=== PATIENT | male | born 1960 | race Caucasian/White ===

== ENCOUNTER 2017-02-02 13:42 | Emergency (ER) | payer MEDICARE, MEDICAID ==
[~2017-02-02] VITALS: Ht 170.2 cm; Wt 86.4 kg
[~2017-02-02 13:42] MED LIST: 00186-0370-20 IH; ATIVAN 0.50.5 MG/TAB PO; CELEXA 20MG20 MG/TAB PO; CLEOCIN HC150 MG/CAP PO; DOXYCYCLINE 10100 MG PO; FLEXERIL 1010 MG/TAB PO; HARVONI; LEVOXYL0.1 MG; LORTAB 5/500 501 TAB PO; METHADONE H10 MG/TAB PO; METHADONE10 MG/5 M1 PO; NAPROSYN500 MG PO; NICODERM C14 MG/PATC TD; NO HOME MEDICATIONS; NORCO 325 MG-51 TAB PO; PAXIL 30MG30 MG PEG; PEN-VEE K500 MG PO; PERCOCET 325 MG1 TA2 PO; PREDNISONE20 MG PO; PROAIR HFA0.09 MG/AC IH; PROVENTIL0.09 MG/A1 IH; REMERON 15M15 MG/TAB PO; SEROQUEL 200MG200 MG PO; SEROQUEL 2525 MG/TAB PO; SEROQUEL XR150 MG PO; SYNTHROID0.05 MG/TA PO; VICODIN PO; ZANTAC 150MG T150 MG PO; ZOFRAN 4MG T4 MG/TAB PO
[2017-02-02 13:46] VITALS: BP 144/83; TEMP 98.6
[2017-02-02] MEDS ORDERED: CLINDAMYCIN150 MG PO (15:31)
[2017-02-02] MEDS ORDERED: PERIDEX (CHLOR480 ML MM (15:31)
[2017-02-02 15:35] VITALS: PULSE 72
== END 2017-02-02 15:36 | disposition home or self-care (01) ==
LOC: COL.ER 13:42
DX: K02.9 Dental caries, unspecified (principal); R68.84 Jaw pain; J44.9 Chronic obstructive pulmonary disease, unspecified; F17.210 Nicotine dependence, cigarettes, uncomplicated

== ENCOUNTER 2018-05-18 15:08 | Observation (INO) | payer MEDICARE, MEDICAID ==
[~2018-05-18] VITALS: Ht 170.2 cm; Wt 85.4 kg
[~2018-05-18 15:08] MED LIST changes: +CLINDAMYCIN150 MG PO; +PERIDEX (CHLOR480 ML MM
[2018-05-18 16:12] LABS: BASO # 0.1 (0.0-0.2); BASO % 0.6 % (0.0-2.0); GRAN # 6.5 (1.4-6.5); GRAN % 77.8 % (42.2-75.2); HEMATOCRIT 46.6 % (42.0-52.0); HEMOGLOBIN 15.8 g/dl (13.5-18.0); LYMPH # 1.2 (1.2-3.4); LYMPH % 14.1 % (20.0-51.0); MEAN CELL VOLUME 88 fl (80.0-100.0); MEAN CORPUSCULAR HEMOGLOBIN 30 pg (27.0-31.0); MEAN CORPUSCULAR HGB CONC 34 g/dl (33.0-37.0); MEAN PLATELET VOLUME 11.6 fl (7.4-10.4); MONO # 0.6 (0.1-0.6); MONO % 7.3 % (1.7-9.3); PLATELET COUNT 151 K/mm3 (130-400); RED BLOOD COUNT 5.27 M/mm3 (4.20-5.60); REDCELL DISTRIBUTION WIDTH-CV 12.3 % (11.5-14.5)
[2018-05-18 16:24] LABS: BILIRUBIN,TOTAL 0.6 mg/dL (0.0-1.0); CALCIUM 8.6 mg/dL (8.4-10.2); CREATININE, serum 0.82 mg/dL (0.66-1.25); POTASSIUM 4.2 mmol/L (3.4-5.0); TOTAL PROTEIN 7.3 gm/dL (6.4-8.2)
[2018-05-18] MEDS ORDERED: PROAIR HFA0.09 MG/AC IH (16:51)
[2018-05-18] MEDS ORDERED: DOXYCYCLINE 10100 MG PO (16:51)
[2018-05-18] MEDS ORDERED: PREDNISONE20 MG PO (16:51)
[2018-05-18 22:01] VITALS: BP 127/70; PULSE 79; TEMP 98.7
[2018-05-19] VITALS (7 sets, daily range): BP systolic 113–141; BP diastolic 63–84; PULSE 70–90; TEMP 98–99.1
--- NOTE | 2018-05-19 00:24 | NUR ---
THE PT WAS ORIENTED TO [facility], ASSISTED OUT OF HIS STREET CLOTHES AND INTO A HOSPITAL GOWN WITH NON SLIP SOCKS ON. HE VERBALIZED OF THE PAST 4 DAYS OF GRADUALLY GETTING MORE AND MORE SHORT OF BREATH, ASKED HIS FRIEND TO BRING HIM TO THE ER. ASSESSED AND ADMITTED. VERBALIZED THAT HE GOT TO THE ER ABOUT [id number]. GOT 2 BREATHING TREATMENTS AND THAT THEY APPEAR TO HAVE HELPED HIM, HE BEDRESTS WITH TV ON. ATE A SANDWICH BOX AND PEPSI
--- NOTE | 2018-05-19 02:40 | NUR ---
BEDRESTING, AWAKE, BUT RESTING, DENIED PAIN OR PROBLEM.
[2018-05-19 06:35] LABS: CALCIUM 8.6 mg/dL (8.4-10.2); CREATININE, serum 0.77 mg/dL (0.66-1.25); POTASSIUM 4.4 mmol/L (3.4-5.0)
[2018-05-19 06:55] LABS: BASO % 0.2 % (0.0-2.0); GRAN # 7.7 (1.4-6.5); GRAN % 88.8 % (42.2-75.2); HEMATOCRIT 43.8 % (42.0-52.0); HEMOGLOBIN 14.6 g/dl (13.5-18.0); LYMPH # 0.8 (1.2-3.4); LYMPH % 8.7 % (20.0-51.0); MEAN CELL VOLUME 89 fl (80.0-100.0); MEAN CORPUSCULAR HEMOGLOBIN 30 pg (27.0-31.0); MEAN CORPUSCULAR HGB CONC 33 g/dl (33.0-37.0); MONO # 0.2 (0.1-0.6); MONO % 1.8 % (1.7-9.3); PLATELET COUNT 154 K/mm3 (130-400); REDCELL DISTRIBUTION WIDTH-CV 12.3 % (11.5-14.5)
--- NOTE | 2018-05-19 10:06 | NUR ---
Initial visit; Patient experiencing anxiety and was receptive to Application Consultant listening and offering prayer and encouragement.
--- NOTE | 2018-05-19 11:00 | NUR ---
SW attended clinical rounding and met with patient to discuss discharge planning. Patient lives with a roommate and two dogs in [place]. His PCP is Dr Villafuerte and he obtains his medications at [facility]. 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 Patient works for [employer] and runs the [employer] occasionally. Patient has been smoking for 25 years but reports he is quitting now. He has had issues paying for his rescue inhalers in the past but is able to obtain his other medications. RAFY will continue to follow for any dc needs.
--- NOTE | 2018-05-19 18:00 | NUR ---
Patient is independent in his room and on a general diet. He ordered his own meals today and is tolerating diet well. No reports of nausea this shift. VSS this shift and is on 3 L NC this evening following treatments with RT. Patient given Ativan this morning due to anxiety. Patient reports that he quit smoking, but did not want to use the nicoderm patch today. Patient had a shower today and was independent with all tasks. Multiple times this nurse checked in on patient and visted with him with noting that he just wanted to visit and following visits he would rest in bed. Patient was teary eyed at one point when discussing depression, but after visiting for a short time, did report feeling better. Will continue to monitor.
--- NOTE | 2018-05-19 21:10 | NUR ---
Patient up ambulating in room. Complaints of anxiousness/restlessness and ativan along with HS meds reviewed and given. Snack of ensure given. Denies further needs at this time.
--- NOTE | 2018-05-19 22:30 | NUR ---
Patient rests in bed. States ativan helped some. Reports may hold off on breatheing treatments at times.
--- NOTE | 2018-05-20 02:23 | NUR ---
Patient rests on right side. Respirations with ease.
[2018-05-20 05:15] VITALS: BP 126/73; PULSE 73; TEMP 98
[2018-05-20 05:17] VITALS: BP 124/65; PULSE 80; TEMP 98
[2018-05-20 07:06] VITALS: BP 124/66; PULSE 80; TEMP 98
--- NOTE | 2018-05-20 11:00 | NUR ---
PT ON ROOM AIR X 15 MINUTES OR LESS. PT STANDING AND TALKING ON PHONE WHEN RT WALKED INTO ROOM. SPO2 85%. PT WANTED TO WALK ANYWAY WITH O2 SO HE WALKED WITH RT AT 3 LPM APPROXIMATELY 300 FEET. SPO2 87-88 ON 3 LPM. TURNED UP TO 4 LPM. BACK TO ROOM TO REST BRIEFLY SPO2 89-90% BACK ON 3 LPM.
--- NOTE | 2018-05-20 11:29 | NUR ---
Patient currently resting in bed at this time following having his exercise oximetry completed. Patient had an anxiety attack this morning and since then has calmed down and seems to be more relaxed. Will continue to monitor.
[2018-05-20 12:00] VITALS: BP 113/74; PULSE 89; TEMP 98.2
--- NOTE | 2018-05-20 14:47 | NUR ---
RAFY and RAFY student met with patient to discuss o2 needs. Patient reports he is currently living in [place], [place]. SW provided choice form and he chose via [facility]. RAFY faxed referral for o2 and nebulizer to [facility]. Patient is dc today home with a friend and o2 provided by [facility].
[2018-05-20] MEDS ORDERED: AIRDUO RESPICL1 EAC1 IH (15:26)
[2018-05-20] MEDS ORDERED: IPRATROPIUM BROM3 M1 IH (15:26)
[2018-05-20] MEDS ORDERED: NICODERM C14 MG/PATC TD (15:28)
[2018-05-20] MEDS ORDERED: PREDNISONE20 MG PO (15:28)
[2018-05-20 15:52] VITALS: BP 143/70; PULSE 94; TEMP 98.3
--- NOTE | 2018-05-20 17:45 | NUR ---
Patient's Health Summary, Discharge Summary, and Home meds printed and reviewed with patient. Stressed importance of follow up appointments. Reviewed medications, called pharmacy to get prices of medications for patient. Called [facility] to have them deliver an oxygen tank flow meter that worked. The one they delivered was broken. Patient will be leaving and stoping by via [facility] to have them educate him on use of oxygen at home. This nurse set up follow up appointments with new PCP Dr. Gtz for 05/27/18 at 1:30 PM and follow up pulmonology appointment SOURAV Villa on 05/21/18 at 2 PM. Belongings gathered by RJ/Myra including glasses, black leather wallet, $20 granado, cell phone and network technical analyst. Patient transported via wheelchair by RJ/Myra and seatbelted for ride home. Patient denied questions.
--- NOTE | 2018-05-20 18:15 | NUR ---
This nurse was working with another patient when she was notified by HALI Boyle that this patient was on the floor in his room. This nurse immediatly went to patient's room and found him sitting on the floor with his oxygen on having a difficult time breathing. Patient stated, "I did not fall, I sat on the floor because I couldn't breath." After visiting with patient found out that RT had been in giving him a breathing treatment. Per patient, "When RT left they had left him off oxygen." He said that he thought he would be okay being off the oxygen since he didn't need it all the time when he was at home. He said that it wasn't RT's fault. Patient stated that he started to cough and without oxygen he had a difficult time breathing. This caused him to yell out to staff, "Help need oxygen". He then sat on the floor and when Tamar arrived to patient she immediatly put his oxygen back on him. This nurse then assisted patient up to his bed via assitance by HALI Boyle. VS BP 135/78, P 128, R 28 on 4 L NC. Patient was given Ativan to help with anxiety and was then given his scheduled methadone. When taking the methadone he took them very fast and one of them got lodged in his throat. This caused him to cough more, increase his anxiety, then led to his heart rate elevating to 130. This nurse called and spoke with charge nurse. Charge nurse, Van spoke with patient and then called SOURAV Escobedo to stop by and see patient to have him evaluated. Patient was evaluated and there were no new orders. Stayed with patient and assisted him with some relaxation breathing exercises. He calmed down and then was able to rest. Continued to monitor him throughout shift.
== END 2018-05-20 17:45 | disposition home or self-care (01) ==
LOC: COL.ER 15:08 → SURG 19:31
PROVIDERS: Emergency Medicine; Nurse Practitioner; ADMIT Hospitalist
DX: J44.1 Chronic obstructive pulmonary disease with (acute) exacerbation (principal); J96.01 Acute respiratory failure with hypoxia; F41.9 Anxiety disorder, unspecified; F32.9 Major depressive disorder, single episode, unspecified; E03.9 Hypothyroidism, unspecified; F17.210 Nicotine dependence, cigarettes, uncomplicated; Z80.1 Family history of malignant neoplasm of trachea, bronchus and lung; Z80.8 Family history of malignant neoplasm of other organs or systems; Z80.3 Family history of malignant neoplasm of breast; Z83.3 Family history of diabetes mellitus
CPT/HCPCS: A4216; G0378; J0696; J1650; J2930; J3475; J7030; J7512

== ENCOUNTER 2019-11-08 18:21 | Emergency (ER) | payer MEDICARE, MEDICAID ==
[~2019-11-08] VITALS: Ht 170.2 cm; Wt 85.5 kg
[~2019-11-08 18:21] MED LIST changes: +AIRDUO RESPICL1 EAC1 IH; +IPRATROPIUM BROM3 M1 IH
[2019-11-08 18:29] VITALS: TEMP 98.7
[2019-11-08] MEDS ORDERED: PROZAC 20MG20 MG PO (18:39)
[2019-11-08 19:01] LABS: BASO # 0.1 (0.0-0.2); BASO % 1.2 % (0.0-2.0); EOS # 0.2 (0.0-0.7); EOS % 2.8 % (0-4.0); GRAN # 4.2 (1.4-6.5); GRAN % 54.2 % (42.2-75.2); HEMATOCRIT 43.5 % (42.0-52.0); HEMOGLOBIN 14.6 g/dl (13.5-18.0); LYMPH # 2.7 (1.2-3.4); LYMPH % 35.1 % (20.0-51.0); MEAN CELL VOLUME 88 fl (80.0-100.0); MEAN CORPUSCULAR HEMOGLOBIN 30 pg (27.0-31.0); MEAN CORPUSCULAR HGB CONC 34 g/dl (33.0-37.0); MEAN PLATELET VOLUME 11.5 fl (7.4-10.4); MONO # 0.5 (0.1-0.6); MONO % 6.2 % (1.7-9.3); PLATELET COUNT 209 K/mm3 (130-400); RED BLOOD COUNT 4.92 M/mm3 (4.20-5.60); REDCELL DISTRIBUTION WIDTH-CV 12.5 % (11.5-14.5)
[2019-11-08 19:10] LABS: ALANINE AMINOTRANSFERASE 14 U/L (4-49); ALBUMIN 3.9 gm/dL (3.5-5.0); ALKALINE PHOSPHATASE 37 U/L (50-136); ANION GAP 6 mmol/L (7-16); AST,SGOT 55 U/L (15-37); BILIRUBIN,TOTAL 0.5 mg/dL (0.0-1.0); BLOOD UREA NITROGEN 12 mg/dL (9-20); CALCIUM 8.4 mg/dL (8.4-10.2); CARBON DIOXIDE 25 mmol/L (22-30); CHLORIDE 106 mmol/L (98-107); CREATININE, serum 0.97 (0.66-1.25); GLUCOSE 118 mg/dL (74-106); LIPASE 45 U/L (23-300); POTASSIUM 4.1 mmol/L (3.4-5.0); SODIUM 137 mmol/L (137-145); TOTAL PROTEIN 6.8 gm/dL (6.4-8.2)
[2019-11-08 19:11] LABS: C-REACTIVE PROTEIN < 0.5 mg/dL (0.0-0.9)
[2019-11-08 19:29] LABS: TROPONIN-I < 0.012 ng/mL (0.000-0.035)
[2019-11-08 21:18] VITALS: BP 131/92; PULSE 65
== END 2019-11-08 21:17 | disposition home or self-care (01) ==
LOC: COL.ER 18:21
PROVIDERS: Emergency Medicine
DX: R07.89 Other chest pain (principal); I10 Essential (primary) hypertension; E78.5 Hyperlipidemia, unspecified; J44.9 Chronic obstructive pulmonary disease, unspecified; F17.210 Nicotine dependence, cigarettes, uncomplicated; Z79.51 Long term (current) use of inhaled steroids

== ENCOUNTER → 2020-12-19 | Outpatient (CLI) | payer MEDICARE, MEDICAID ==
[~2020-12-19] MED LIST changes: +PROZAC 20MG20 MG PO
== END ==
LOC: COL.RAD 13:32
DX: Z87.891 Personal history of nicotine dependence (principal); Z12.2 Encounter for screening for malignant neoplasm of respiratory organs; F17.210 Nicotine dependence, cigarettes, uncomplicated

== ENCOUNTER → 2022-08-05 | Outpatient (CLI) | payer MEDICARE, MEDICAID | LOC: COL.RAD 14:18 | DX: Z12.31 Encounter for screening mammogram for malignant neoplasm of breast (principal); Z00.00 Encounter for general adult medical examination without abnormal findings; F17.210 Nicotine dependence, cigarettes, uncomplicated ==